=== PATIENT | male | born 1950 | race Caucasian/White ===

== ENCOUNTER 2016-10-28 16:11 | Emergency (ER) | payer OTHER ==
[~2016-10-28] VITALS: Ht 175.3 cm; Wt 120.9 kg
[~2016-10-28 16:11] MED LIST: ASPI-1061 PO; ATOR20TA65 PO; BUDE10.2 IH; CARB200T PO; CLON1 PO; CYCL10 PO; DOCU-275 PO; FISH1CAP22 PO; HYDR-3971 PO; LISI-661 PO; MIRT45TA2 PO; MULT-1203 PO; P-EP-24 PO
[2016-10-28] MEDS ORDERED: METF500T4 PO (16:15)
[2016-10-28 16:22] LABS: GLUCOSE,POINT OF CARE 112 MG/DL (70-110)
[2016-10-28] MEDS ORDERED: HYDROCODONE/ACETAMINOPHEN 10-325 MG TABLET PO ONE (19:00)
[2016-10-28 19:47] VITALS: BP 138/98
== END 2016-10-28 20:34 | disposition home or self-care (01) ==
LOC: EMS 16:16
DX: S42.291A Other displaced fracture of upper end of right humerus, initial encounter for closed fracture (principal); I11.0 Hypertensive heart disease with heart failure; I50.9 Heart failure, unspecified; I25.2 Old myocardial infarction; E78.00 Pure hypercholesterolemia, unspecified; E11.9 Type 2 diabetes mellitus without complications; F17.210 Nicotine dependence, cigarettes, uncomplicated; Z88.8 Allergy status to other drugs, medicaments and biological substances; W05.0XXA Fall from non-moving wheelchair, initial encounter; Y93.89 Activity, other specified; Y92.89 Other specified places as the place of occurrence of the external cause; Y99.2 Volunteer activity
CPT/HCPCS: 29105; 82962; 99284